=== PATIENT | female | born 2005 | race Caucasian/White ===

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

== ENCOUNTER 2025-01-20 20:22 | Emergency (ER) | payer OTHER ==
[~2025-01-20] VITALS: Ht 162.6 cm; Wt 86.2 kg
[~2025-01-20 20:22] MED LIST changes: +BUPR100 PO; +IBU600 MG PO
[2025-01-20 20:32] VITALS: BP 132/90
[2025-01-20] MEDS ORDERED: Triamcinolone Inj Susp 40 MG / ML 1ML Vial IM ONE (20:35)
== END 2025-01-20 21:23 | disposition home or self-care (01) ==
LOC: ER 20:22
DX: L23.7 Allergic contact dermatitis due to plants, except food (principal); Z87.891 Personal history of nicotine dependence; Z79.899 Other long term (current) drug therapy
CPT/HCPCS: 96372; 99282-25; A9270; J3301

== ENCOUNTER 2025-02-01 09:01 | Observation (INO) | payer OTHER ==
[~2025-02-01] VITALS: Ht 170.2 cm; Wt 99.8 kg
[2025-02-01 09:27] LABS: Source, Urine Voided
[2025-02-01 09:31] LABS: BASOPHILS ABSOLUTE AUTO 0.03 K/mm3 (0.00-0.23); BASOPHILS PERCENT AUTO 0 % (0-2); EOSINOPHILS ABSOLUTE AUTO 0.06 K/mm3 (0.00-0.68); EOSINOPHILS PERCENT AUTO 1 % (0-6); Hematocrit 39.1 % (33.0-51.0); Hemoglobin 13.0 g/dL (11.5-16.0); IMMATURE GRAN ABSOLUTE AUTO 0.04 K/mm3 (0.00-0.10); IMMATURE GRAN PERCENT AUTO 0 % (0-1); LYMPHOCYTES ABSOLUTE AUTO 1.90 K/mm3 (0.84-5.20); LYMPHOCYTES PERCENT AUTO 21 % (21-46); MONOCYTES ABSOLUTE AUTO 0.28 K/mm3 (0.16-1.47); MONOCYTES PERCENT AUTO 3 % (4-13); Mean Corpuscular HGB Conc 33.2 g/dL (31.5-36.5); Mean Corpuscular Volume 83 fL (80-100); NEUTROPHILS ABSOLUTE AUTO 6.95 K/mm3 (1.96-9.15); NEUTROPHILS PERCENT AUTO 75 % (41-73); NRBC ABSOLUTE 0.00 K/mm3 (0.00-0.02); NRBC Auto 0.0 /100 WBC (0.0-0.2); Platelet Count 405 K/mm3 (150-400); RDW Coefficient Variation 13.1 % (11.7-14.2); RDW Standard Deviation 39.9 fL (35.1-46.3)
[2025-02-01 09:35] LABS: Bilirubin, Urine Neg (Neg); Color, Urine Yellow (P-Yellow); Glucose Qualitative, Urine Neg (Neg); Ketones, Urine Neg (Neg); Leukocyte Esterase, Urine Neg (Neg); Protein, Urine Neg (Neg); Specific Gravity, Urine 1.010 (1.003-1.022); Urobilinogen, Urine NORM (Normal)
[2025-02-01 09:55] LABS: Ethanol (Alcohol), Blood, Med 96 mg/dL; Salicylate <1.7 mg/dL (2.8-20.0)
[2025-02-01 09:57] LABS: Alanine Aminotransfer (ALT/SGP 22 U/L (12-78); Albumin, Blood 3.5 g/dL (3.4-5.0); Albumin/Globulin Ratio 0.9 (0.8-1.8); Anion Gap 9 mmol/L (3-11); Aspartate Aminotrans (AST/SGOT 15 U/L (12-37); Bilirubin, Total 0.2 mg/dL (0.1-1.0); Blood Urea Nitrogen 9 mg/dL (8-21); CO2, Blood 25 mmol/L (21-32); Calcium, Blood 8.9 mg/dL (8.5-10.1); Chloride, Blood 109 mmol/L (98-108); Creatinine, Blood 0.78 mg/dL (0.40-1.00); Globulin, Blood 3.9 g/dL (2.2-4.0); Glucose, Blood 115 mg/dL (70-99); Potassium, Blood 4.0 mmol/L (3.5-5.5); Sodium, Blood 139 mmol/L (136-145); Total Protein, Blood 7.4 g/dL (6.4-8.2); U Amphetamine Screen Not Detected; U Barbituate Screen Not Detected; U Benzodiazapine Screen Not Detected; U Buprenorphine Screen Not Detected; U Cannabinoids Screen Not Detected; U Cocaine Screen Not Detected; U Methadone Screen Not Detected; U Methamphetamine Screen Not Detected; U Opiates Screen Not Detected; U Oxycodone Screen Not Detected; U Phencyclidine Screen Not Detected
[2025-02-01 09:58] LABS: Acetaminophen, Random <2.0 ug/mL (10.0-30.0)
[2025-02-01] MEDS ORDERED: NS 1,000 ML IV SCH (10:45)
[2025-02-01 21:35] VITALS: BP 120/86
[2025-02-02] VITALS: BP 123/88
[2025-02-02 04:24] VITALS: BP 112/68
[2025-02-02 06:00] LABS: BASOPHILS ABSOLUTE AUTO 0.03 K/mm3 (0.00-0.23); BASOPHILS PERCENT AUTO 0 % (0-2); EOSINOPHILS ABSOLUTE AUTO 0.05 K/mm3 (0.00-0.68); EOSINOPHILS PERCENT AUTO 0 % (0-6); Hematocrit 37.4 % (33.0-51.0); Hemoglobin 12.3 g/dL (11.5-16.0); IMMATURE GRAN ABSOLUTE AUTO 0.08 K/mm3 (0.00-0.10); IMMATURE GRAN PERCENT AUTO 1 % (0-1); LYMPHOCYTES ABSOLUTE AUTO 3.06 K/mm3 (0.84-5.20); LYMPHOCYTES PERCENT AUTO 19 % (21-46); MONOCYTES ABSOLUTE AUTO 1.04 K/mm3 (0.16-1.47); MONOCYTES PERCENT AUTO 7 % (4-13); Mean Corpuscular HGB Conc 32.9 g/dL (31.5-36.5); Mean Corpuscular Volume 85 fL (80-100); NEUTROPHILS ABSOLUTE AUTO 11.57 K/mm3 (1.96-9.15); NEUTROPHILS PERCENT AUTO 73 % (41-73); NRBC ABSOLUTE 0.00 K/mm3 (0.00-0.02); NRBC Auto 0.0 /100 WBC (0.0-0.2); Platelet Count 415 K/mm3 (150-400); RDW Coefficient Variation 13.2 % (11.7-14.2); RDW Standard Deviation 40.9 fL (35.1-46.3)
[2025-02-02 06:24] LABS: Alanine Aminotransfer (ALT/SGP 20.0 U/L (12-78); Albumin, Blood 3.1 g/dL (3.4-5.0); Albumin/Globulin Ratio 0.8 (0.8-1.8); Anion Gap 9.0 mmol/L (3-11); Aspartate Aminotrans (AST/SGOT 15.0 U/L (12-37); Bilirubin, Total 0.5 mg/dL (0.1-1.0); Blood Urea Nitrogen 17.0 mg/dL (8-21); CO2, Blood 25.0 mmol/L (21-32); Calcium, Blood 8.7 mg/dL (8.5-10.1); Chloride, Blood 109.0 mmol/L (98-108); Creatinine, Blood 0.76 mg/dL (0.40-1.00); Globulin, Blood 3.9 g/dL (2.2-4.0); Glucose, Blood 106.0 mg/dL (70-99); Potassium, Blood 3.8 mmol/L (3.5-5.5); Sodium, Blood 139.0 mmol/L (136-145); Total Protein, Blood 7.0 g/dL (6.4-8.2)
--- NOTE | 2025-02-02 06:44 | NUR ---
SUMMARY RECEIVED FROM ER , APPEARS AWAKE ORIENTED AND VS STABLE, ACCOMPANIED BY FATHER. SITTER ARRIVED AND PUT ON 1:1 MONITORING. HAS MILD CHESTPAIN 5/10 ONLY SAID WHEN ASKED DUE TO THE PREVIOUS STERNAL RUBS DONE BUT TOLERATES WELL. NO OTHER S/SX AND APPEARS CIWA STABLE. SLEPT VERY WELL WHOLE NIGHT IN THE ROOM.
[2025-02-02 15:48] VITALS: BP 119/85
--- NOTE | 2025-02-02 17:39 | NUR ---
SHIFT SUMMARY PT A&OX4, VSS, AMB IND, TOLERATING PO, VOIDING, AND DENIED PAIN. CIWA 1 AFTER SCHEDULED LIBRIUM THIS AFTERNOON. PT STATES THAT THE WITHDRAWAL SYMPTOMS ARE MANAGEABLE W/ LIBRIUM AND FEELS MUCH BETTER THAN THIS AM WHEN CIWAs WERE 3 AND 5. PT ADMITS TO HAVING THOUGHTS AND A PLAN, BUT NO INTENTION OF ACTING UPON THEM WHILE IN THE HOSPITAL. PT COOPERATIVE W/ CARE AND 1:1 SITTER REMAINS AT BEDSIDE. SHORT CALL LIGHT PROVIDED AND PT ABLE TO MAKE NEEDS KNOWN.
[2025-02-02 20:05] VITALS: BP 133/83
[2025-02-02 23:43] VITALS: BP 102/68
[2025-02-03 04:55] VITALS: BP 98/66
[2025-02-03 06:04] LABS: BASOPHILS ABSOLUTE AUTO 0.04 K/mm3 (0.00-0.23); BASOPHILS PERCENT AUTO 0 % (0-2); EOSINOPHILS ABSOLUTE AUTO 0.13 K/mm3 (0.00-0.68); EOSINOPHILS PERCENT AUTO 1 % (0-6); Hematocrit 38.4 % (33.0-51.0); Hemoglobin 12.4 g/dL (11.5-16.0); IMMATURE GRAN ABSOLUTE AUTO 0.04 K/mm3 (0.00-0.10); IMMATURE GRAN PERCENT AUTO 0 % (0-1); LYMPHOCYTES ABSOLUTE AUTO 3.25 K/mm3 (0.84-5.20); LYMPHOCYTES PERCENT AUTO 30 % (21-46); MONOCYTES ABSOLUTE AUTO 0.62 K/mm3 (0.16-1.47); MONOCYTES PERCENT AUTO 6 % (4-13); Mean Corpuscular HGB Conc 32.3 g/dL (31.5-36.5); Mean Corpuscular Volume 85 fL (80-100); NEUTROPHILS ABSOLUTE AUTO 6.79 K/mm3 (1.96-9.15); NEUTROPHILS PERCENT AUTO 62 % (41-73); NRBC ABSOLUTE 0.00 K/mm3 (0.00-0.02); NRBC Auto 0.0 /100 WBC (0.0-0.2); Platelet Count 361 K/mm3 (150-400); RDW Coefficient Variation 13.1 % (11.7-14.2); RDW Standard Deviation 40.5 fL (35.1-46.3)
--- NOTE | 2025-02-03 06:14 | NUR ---
SUMMARY VSS, ALERT AND ORIENTED , APPEARS MEDICALLY STABLE. HAS SUICIDAL IDEATIONS WHEN ASKED BUT SAID NO WHEN ASKED IF SHE WANTS TO ELABORATE/TELL FURTHERMORE ABOUT IT. CIWA SCORING VERY WELL W/ SIGNIFICANT IMPROVEMENT. PT AWARE AND WANTS TO DISCHARGE TO BHU IN MORNING. HIGHLY COOPERATIVE TO TX REGIMEN AND DID NOT DEMONSTRATE ANY ACTION THAT WARRANTS SELF-HARM. SLEPT VERY WELL AND LEFT UNDISTURBED FOR OPTIMAL REST.
[2025-02-03 06:24] LABS: Anion Gap 7.0 mmol/L (3-11); Blood Urea Nitrogen 24.0 mg/dL (8-21); CO2, Blood 28.0 mmol/L (21-32); Calcium, Blood 8.6 mg/dL (8.5-10.1); Chloride, Blood 107.0 mmol/L (98-108); Creatinine, Blood 1.02 mg/dL (0.40-1.00); Glucose, Blood 98.0 mg/dL (70-99); Potassium, Blood 4.3 mmol/L (3.5-5.5); Sodium, Blood 138.0 mmol/L (136-145)
[2025-02-03 07:58] VITALS: BP 116/74
[2025-02-03] MEDS ORDERED: CHLO25 PO (11:43)
[2025-02-03] MEDS ORDERED: ONDA4ODT MM (11:43)
[2025-02-03 11:56] VITALS: BP 119/77
[2025-02-03] MEDS ORDERED: Ondansetron 4 MG SoluTab MM ONE (12:00)
[2025-02-03] MEDS ORDERED: Ondansetron 4 MG SoluTab MM PRN (12:00)
--- NOTE | 2025-02-03 14:20 | NUR ---
PT DISCHARGED TO [facility]. [facility] STAFF AND SECURITY PRESENT AT TIME OF DISCHARGE. ALL VALUABLES RETURNED AND SENT WITH THE PT. REPORT GIVEN TO U NURSE.
[2025-02-07] MEDS ORDERED: OLANZAPINE PO (10:51)
[2025-02-07] MEDS ORDERED: Prozac20 MG PO (10:51)
== END 2025-02-03 14:17 ==
LOC: ER 09:01 → ERHOLD 09:02 → ER 13:58 → ERHOLD 13:58 → MEDS 21:40 → ENPENDDIS 02-03 07:40 → MEDS 02-03 14:17
PROVIDERS: Emergency Medicine; ADMIT Family Medicine
DX: T43.292A Poisoning by other antidepressants, intentional self-harm, initial encounter (principal); F10.239 Alcohol dependence with withdrawal, unspecified; F31.9 Bipolar disorder, unspecified; Z79.899 Other long term (current) drug therapy; Z87.891 Personal history of nicotine dependence
CPT/HCPCS: 36415; 80048; 80053; 80320; 81003; 81025; 83690; 83735; 85025; 93005; 93010; 96360; 99285-25; A9270; G0378; G0480; J7030; P9612

== ENCOUNTER 2025-04-16 22:23 | Emergency (ER) | payer OTHER ==
[~2025-04-16] VITALS: Ht 160 cm; Wt 83.9 kg
[~2025-04-16 22:23] MED LIST changes: +CHLO25 PO; +OLANZAPINE PO; +Prozac20 MG PO
[2025-04-16 22:36] VITALS: BP 138/94
[2025-04-16] MEDS ORDERED: Triamcinolone Inj Susp 40 MG / ML 1ML Vial IM ONE (22:45)
[2025-04-16] MEDS ORDERED: CORTISONE60 GM TOP (22:49)
== END 2025-04-16 22:54 | disposition home or self-care (01) ==
LOC: ER 22:23
DX: L23.7 Allergic contact dermatitis due to plants, except food (principal); Z87.891 Personal history of nicotine dependence; Z79.899 Other long term (current) drug therapy
CPT/HCPCS: 96372; 99282; J3301

== ENCOUNTER 2025-05-18 23:44 | Emergency (ER) | payer OTHER ==
[~2025-05-18] VITALS: Ht 160 cm; Wt 86.2 kg
[~2025-05-18 23:44] MED LIST changes: +CORTISONE60 GM TOP
[2025-05-19 00:19] VITALS: BP 133/101
== END 2025-05-19 01:01 | disposition home or self-care (01) ==
LOC: ER 23:44
DX: S93.602A Unspecified sprain of left foot, initial encounter (principal); W20.8XXA Other cause of strike by thrown, projected or falling object, initial encounter; Z79.899 Other long term (current) drug therapy; Z87.891 Personal history of nicotine dependence
CPT/HCPCS: 73630; 99283; A9270

== ENCOUNTER 2025-06-12 12:25 | Emergency (ER) | payer OTHER ==
[~2025-06-12] VITALS: Ht 160 cm; Wt 95.2 kg
[2025-06-12 15:37] VITALS: BP 118/81
[2025-06-12] MEDS ORDERED: Tetracaine HCl/Pf 0.5% Opth Soln 4 ml BOTHEYES ONE (17:45)
[2025-06-12] MEDS ORDERED: Polymyxin B /Trimethoprim Opth Soln 10 ML BOTHEYES ONE (17:45)
[2025-06-12] MEDS ORDERED: POLYTRIM EYE DR10 M1 BOTHEYES (17:49)
== END 2025-06-12 18:06 | disposition home or self-care (01) ==
LOC: ER 12:25
DX: H10.9 Unspecified conjunctivitis (principal); Z79.899 Other long term (current) drug therapy; Z87.891 Personal history of nicotine dependence
CPT/HCPCS: 99282; A9270